=== PATIENT | male | born 1965 | race Caucasian/White ===

== ENCOUNTER 2017-12-05 07:13 | Day surgery (SDC) | payer BC ==
[~2017-12-05 07:13] MED LIST: Lactated Ringers 1,000 ML IV SCH; Sodium Chloride 0.9% 10 ML Syringe FLUSH PRN
[2017-12-05] MEDS ORDERED: fentaNYL 100 MCG/2 ML SDV ONE ×2 (08:01→08:15)
[2017-12-05] MEDS ORDERED: Midazolam 1 MG/ML 2 ML SDV ONE ×2 (08:01→08:15)
[2017-12-05] MEDS ORDERED: Propofol 200 MG/20 ML SDV ONE ×4 (08:01→09:36)
[2017-12-05] MEDS ORDERED: Lidocaine 2% 5 ML SDV ONE (08:15)
--- NOTE | 2017-12-05 10:01 | PCM.OPNOTE ---
- General Post-Op/Procedure Note Date of Surgery/Procedure: 12/05/17 Operative Procedure(s): EGD with biopsy and Colonoscopy with Polypectomy Findings: Normal appearing structures on upper endoscopy 2 large irregular sigmoid colon polyps (? inflammatory) Narrowing at ileo-colonic anastomosis small rectal polyps Pre Op Diagnosis: Abdominal bloating. Crohn's Disease Post-Op Diagnosis: Colon Polyps. Anastomotic Stricture. Crohn's Disease Anesthesia Technique: [facility] [place] Primary Surgeon: Luther Ng Pathology: Biopsies of Gastric Antrum and Duodenum Rectal polyps Sigmoid Colon Polyps Output, Urine Amount: 0 EBL in mLs: 20 Complications: None Condition: Good
[2017-12-05 10:46] VITALS: BP 127/79
--- NOTE | 2017-12-05 12:06 | OR ---
Date of Procedure: 12/05/2017 PREOPERATIVE DIAGNOSES: 1. Abdominal bloating. 2. History of Crohn disease. POSTOPERATIVE DIAGNOSES: 1. Normal upper endoscopy. 2. Colon polyps. 3. Anastomotic stricture. 4. Crohn disease. OPERATION PERFORMED: Esophagogastroduodenoscopy with biopsy and colonoscopy with polypectomy. INDICATIONS FOR SURGERY: This 52-year-old male has a known history of Crohn disease and has had a previous intestinal resection for this. It has been several years since his last colonoscopy and he is noting increased abdominal bloating. FINDINGS: On upper endoscopy, the esophagus, stomach, and duodenum to the fourth portion appeared normal. No ulcers or visible signs of inflammation were noted. On colonoscopy, the patient had an area of some tortuosity in the sigmoid region. In this area, two polypoid lesions were noted, one was at the 30 cm level and estimated at 3 cm in size, the other was at the 40 cm level and estimated at 1.5 cm in size. Both of these were irregular, but somewhat inflammatory in appearance. The patient also had two small polyps in the rectum 5 cm from the anal verge, these were 3 to 4 mm in size. The colon otherwise appeared normal with the exception of the colon to ileum anastomosis, which appeared to be markedly narrowed. PROCEDURE IN DETAIL: The patient was taken to the operating room. He was given intravenous sedation and his throat was topically anesthetized. With him in the left lateral decubitus position, the esophagus was intubated under direct visualization with the Olympus gastroscope. This was then carefully advanced through the esophagus, stomach, and duodenum to the fourth portion. Because of the patient's symptoms, random biopsies of the duodenum were taken. The duodenum was examined and appeared normal. The scope was withdrawn back up into the stomach where full examination including retroflexed examination of the fundus was carried out and random biopsies of the antrum were taken to rule out H. pylori. The GE junction and esophagus were then examined as the scope was withdrawn. Attention was then turned to colonoscopy. Digital rectal exam shows no rectal masses. The Olympus colonoscope was inserted into the rectum. Two small polyps were noted in the rectum. These were removed with the biopsy forceps and submitted as specimens. Retroflexed examination of the rectum was then carried out and the scope was then carefully advanced. In the sigmoid colon region, the large polyp at 30 cm level was identified. Using the larger size cautery snare, this polyp was removed in piecemeal and specimens retrieved. The majority of the polyp was removed. There did appear to be a small bit of the stalk remaining, but no noted complication was noted at this point. On further advancement of the scope, second polypoid lesion in the sigmoid colon was identified. On insertion of the scope because of the acute angulation of the colon, the snare could not be placed around this polypoid lesion, so the scope was then advanced through the length of the remaining colon to the anastomosis where it appeared to be markedly strictured, but no other lesions in the more proximal colon were noted. The scope was then carefully withdrawn, sequentially re-examining the colonic segments. Upon withdrawal of the scope, the polyp in the sigmoid colon was again viewed and the distal portion of it was able to be removed with cautery snare and retrieved into a polyp trap. Although the majority of this polyp was not removed. Examination was completed as the scope was further withdrawn and once the examination had completed, the scope was removed and the patient was taken from the operating room in satisfactory condition. ESTIMATED BLOOD LOSS: 20 mL. COMPLICATIONS: None. PROGNOSIS: Good. JOSE MIGUEL Ng MD /[id number] [facility]
--- NOTE | 2017-12-05 12:06 | HP ---
HISTORY OF PRESENT ILLNESS: This 52-year-old male presents today for EGD and colonoscopy. He has a history of abdominal bloating and some nausea. He is also overdue for colonoscopy. The patient has a history of Crohn disease and has had a previous surgical resection for this problem. He has also had multiple abdominal wall hernia repairs. PAST MEDICAL HISTORY: Shows that he is generally, otherwise, healthy. MEDICATIONS: His only current medication is vitamins. ALLERGIES: He is allergic to sulfa. SOCIAL HISTORY: He is a former smoker. PHYSICAL EXAMINATION: VITAL SIGNS: Physical exam today shows a temperature of 97.7, pulse 86, and blood pressure is 114/86. GENERAL: The patient is an adult male, currently in no acute distress. HEENT: Head is normocephalic. No scleral icterus. HEART: Regular. LUNGS: Clear. ABDOMEN: Soft. There is some mild tenderness in the left lower quadrant. No abdominal masses are noted. There is a mild distention. No hepatic or splenic enlargement. EXTREMITIES: Show no edema. IMPRESSION: 1. Abdominal bloating. 2. Colon cancer screening. 3. History of Crohn disease. PLAN: EGD and colonoscopy. INFORMED CONSENT: I have discussed the proposed upper and lower endoscopy with the patient. He understands indications, options, risks, and agrees to proceed. JOSE MIGUEL Ng MD /[id number]
== END 2017-12-05 11:33 | disposition home or self-care (01) ==
LOC: LL.SDS 07:13
PROVIDERS: ATTEND Surgery
DX: K29.50 Unspecified chronic gastritis without bleeding (principal); K63.5 Polyp of colon; K62.1 Rectal polyp; Z88.2 Allergy status to sulfonamides; Z87.891 Personal history of nicotine dependence; Z79.899 Other long term (current) drug therapy
CPT/HCPCS: J2250; J2704; J3010; J7120

== ENCOUNTER 2018-05-26 16:23 | Emergency (ER) | payer BC, OTHER ==
[2018-05-26 16:29] VITALS: BP 122/85
[2018-05-26] MEDS ORDERED: Ketorolac 10 MG Tab PO ONE (16:59)
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
== END 2018-05-26 17:15 | disposition home or self-care (01) ==
LOC: LL.ED 16:23
DX: S20.212A Contusion of left front wall of thorax, initial encounter (principal); W22.8XXA Striking against or struck by other objects, initial encounter; Z88.2 Allergy status to sulfonamides
CPT/HCPCS: 71101-LT; 99283; A9270-GY

== ENCOUNTER 2021-11-02 09:25 | Inpatient (IN) | payer BC ==
--- NOTE | 2021-11-02 09:29 | EDM.PDOC ---
ED HPI GENERAL MEDICAL PROBLEM - General Chief Complaint: General Stated Complaint: covid, nausea, weakness Time Seen by Provider: 11/02/21 09:29 Source of Information: Reports: Patient History Limitations: Reports: No Limitations - History of Present Illness INITIAL COMMENTS - FREE TEXT/NARRATIVE: Patient comes emergency department today from home with complaints of weakness f ever chills cough and congestion. This patient who has a history of bilateral sciatica Crohn's disease which she is on chronic Imuran for. On 10/23/2021 he started having cough shortness of breath and fever. He was diagnosed Covid positive on 10/26/21. Since that time he has eaten very little. Ate toast yesterday no fluids. No appetite. SOB with cough and congestion. No pain in his chest palpitation. Generalized weakness myalgias. Has not taken anything for fever this morning. Dry hacky non-productive cough. No syncope some weakness upon standing. No abd pain nausea or vomiting. No hematuria dysuria or hematuria. No diarrhea. No pain in his legs or calves. No history of blood clots. He is not covid vaccinated. - Related Data Allergies Allergy/AdvReac Type Severity Reaction Status Date / Time Sulfa (Sulfonamide Allergy Rash Verified 11/02/21 12:05 Antibiotics) Home Meds: Home Meds D-Methorphan/PE/Acetaminophen [Daytime Cold Multi-Symp Gelcap] 1 each PO Q4HR PRN 11/02/21 [History] Meloxicam 15 mg PO DAILY 11/02/21 [History] Past Medical History HEENT History: Reports: None Cardiovascular History: Reports: None Respiratory History: Reports: None Gastrointestinal History: Reports: Other (See Below) Other Gastrointestinal History: Crohn's Genitourinary History: Reports: None Musculoskeletal History: Reports: None Neurological History: Reports: None Psychiatric History: Reports: None Endocrine/Metabolic History: Reports: Obesity/BMI 30+ Hematologic History: Reports: None Immunologic History: Reports: None Oncologic (Cancer) History: Reports: None Dermatologic History: Reports: None - Past Surgical History GI Surgical History: Reports: Appendectomy Social & Family History - Caffeine Use Caffeine Use: Reports: Coffee, Soda ED ROS GENERAL - Review of Systems Review Of Systems: Comprehensive ROS is negative, except as noted in HPI. ED EXAM, GENERAL - Physical Exam Exam: See Below Exam Limited By: No Limitations General Appearance: Alert, WD/WN, No Apparent Distress Eye Exam: Bilateral Eye: EOMI, PERRL Ears: Normal External Exam Nose: Normal Inspection, Nasal Flaring Head: Atraumatic, Normocephalic Neck: Normal Inspection, Supple, Non-Tender, Full Range of Motion Respiratory/Chest: No Respiratory Distress, No Accessory Muscle Use, Decreased Breath Sounds, Crackles (Fine inspiratory crackles inspiratory bilaterally. ). No: Wheezing Cardiovascular: Normal Peripheral Pulses, Regular Rate, Rhythm Peripheral Pulses: 2+: Radial (L), Radial (R), Posterior Tibial (L), Posterior Tibial (R), Dorsalis Pedis (L), Dorsalis Pedis (R) GI/Abdominal: Normal Bowel Sounds, Soft, Non-Tender (Male) Exam: Deferred Rectal (Males) Exam: Deferred Back Exam: Normal Inspection, Full Range of Motion Extremities: Normal Inspection (No redness sores lesions cords redness tenderness. ), Normal Range of Motion, No Pedal Edema, Normal Capillary Refill. No: Konrad's Sign Neurological: Alert, Oriented, Normal Cognition, No Motor/Sensory Deficits Psychiatric: Normal Affect, Normal Mood Skin Exam: Warm, Dry, Intact, Normal Color, No Rash Lymphatic: No Adenopathy Course - Vital Signs Last Recorded V/S: Last Vital Signs Temp 99.4 F 11/02/21 17:26 Pulse 102 H 11/02/21 16:00 Resp 16 11/02/21 16:00 BP 144/78 H 11/02/21 16:00 Pulse Ox 91 L 11/02/21 17:26 - Orders/Labs/Meds Orders: Active Orders 24 hr Category Date Time Status Admission Status [Patient Status] [ADT] Routine ADT 11/02/21 12:42 Active Peripheral IV Care [RC] . DIRECTED Care 11/02/21 09:39 Active CTA Chest W WO Contrast [Ang Chest] [CT] Stat Exams 11/02/21 11:03 Taken Chest 1V Frontal [CR] Stat Exams 11/02/21 09:38 Taken CULTURE BLOOD [BC] Stat Lab 11/02/21 09:30 Received CULTURE BLOOD [BC] Stat Lab 11/02/21 10:35 Received PROCALCITONIN [REF] Stat Lab 11/02/21 09:30 Received UA RFX JUSTIN AND CULT IF INDIC [URIN] Stat Lab 11/02/21 09:38 Ordered Sodium Chloride 0.9% [Saline Flush] Med 11/02/21 09:37 Active 10 ml FLUSH ASDIRECTED PRN Sodium Chloride 0.9% [Saline Flush] Med 11/02/21 11:15 Active 30 ml FLUSH ASDIRECTED Blood Culture x2 Reflex Set [OM.PC] Stat Oth 11/02/21 09:57 Ordered Peripheral IV Insertion Adult [OM.PC] Stat Ot 11/02/21 09:38 Ordered Medication Orders Acetaminophen (Acetaminophen 325 Mg Tab) 650 mg PO Q4H PRN PRN Reason: Pain (Mild 1-3)/fever Last Admin: 11/02/21 14:33 Dose: 650 mg Documented by: MERISSA Albuterol (Albuterol 6.7 Gm Inhaler) 0 gm INH Q4HR PRN PRN Reason: Shortness Of Breath, Cough Last Admin: 11/02/21 17:22 Dose: 2 puff Documented by: MERISSA Benzonatate (Benzonatate 100 Mg Cap) 100 mg PO TID PRN PRN Reason: Cough Last Admin: 11/02/21 17:22 Dose: 100 mg Documented by: MERISSA Dexamethasone (Dexamethasone 2 Mg Tab) 6 mg PO DAILY [facility] Enoxaparin Sodium (Enoxaparin 40 Mg/0.4 Ml Syringe) 40 mg SUBCUT DAILY [facility] Last Admin: 11/02/21 14:33 Dose: 40 mg Documented by: MERISSA Remdesivir 100 mg/ Sodium (Chloride) 100 mls @ 100 mls/hr IV Q24H [facility] Lactated Ringer's (Ringers, Lactated) 1,000 mls @ 75 mls/hr IV ASDIRECTED [facility] Phenol/Menthol (Phenol 1.4% Oral [place] 177 Ml Bottle) 2 ml MUCMEM Q2H PRN PRN Reason: Sore Throat Potassium Bicarbonate (Potassium Bicarbonate/Cit Ac 20 Meq Effervescent Tab) 20 meq PO Q2H [facility] Stop: 11/02/21 21:31 Last Admin: 11/02/21 17:29 Dose: 20 meq Documented by: MERISSA Sodium Chloride (Sodium Chloride 0.9% 10 Ml Syringe) 10 ml FLUSH ASDIRECTED PRN PRN Reason: Keep Vein Open Sodium Chloride (Sodium Chloride 0.9% 10 Ml Syringe) 30 ml FLUSH ASDIRECTED LOLY Last Admin: 11/02/21 12:26 Dose: 30 ml Documented by: MERISSA Sodium Chloride (Sodium Chloride 0.9% 10 Ml Syringe) 30 ml FLUSH DAILY@1500 LOLY Stop: 11/06/21 15:01 Last Admin: 11/02/21 15:53 Dose: 30 ml Documented by: MERISSA Labs: Laboratory Tests 11/02/21 11/02/21 11/02/21 Range/Units 09:30 09:30 09:30 WBC 7.2 (4.0-10.2) K/uL RBC 4.25 L (4.33-5.41) M/uL Hgb 13.3 (13.1-16.8) g/dL Hct 38.6 L (39.0-49.0) % MCV 90.8 (84.0-98.0) fL MCH 31.3 (28.2-33.3) pg MCHC 34.5 (31.7-36.0) g/dL RDW 13.7 (11.2-14.1) % Plt Count 348 D (150-350) K/uL Neut % (Auto) 89.6 H (45.0-80.0) % Lymph % (Auto) 4.3 L (10.0-50.0) % Wilkinson % (Auto) 6.0 (2.0-14.0) % Eos % (Auto) 0.0 (0.0-5.0) % Baso % (Auto) 0.1 (0.0-2.0) % Neut # (Auto) 6.43 (1.40-7.00) K/uL Lymph # (Auto) 0.31 L (0.50-3.50) K/uL Wilkinson # (Auto) 0.43 (0.00-1.00) K/uL Eos # (Auto) 0.00 (0.00-0.50) K/uL Baso # (Auto) 0.01 (0.00-0.20) K/uL PT 10.3 (9.5-12.0) SEC INR 1.0 APTT 33.0 H (24.5-32.8) SEC D-Dimer, Quantitative (0-400) ng/mL Sodium 139 (136-145) mmol/L Potassium 2.7 L* (3.5-5.1) mmol/L Chloride 97 L (98-107) mmol/L Carbon Dioxide 28.0 (21.0-32.0) mmol/L Anion Gap 16.7 H (7-15) meq/L BUN 15 (7-18) mg/dL Creatinine 1.38 H (0.51-1.17) mg/dL Est Cr Clr Drug Dosing TNP Estimated GFR (MDRD) 53 mL/min Glucose 110 H (70-99) mg/dL Lactic Acid (0.4-2.0) mmol/L Calcium 8.4 L (8.5-10.1) mg/dL Magnesium 2.0 (1.8-2.4) mg/dL Ferritin (8-388) ng/mL Total Bilirubin 0.5 (0.2-1.0) mg/dL Direct Bilirubin (0.0-0.2) mg/dL AST 57 H (15-37) U/L ALT 36 (12-78) U/L Alkaline Phosphatase 127 H (46-116) IU/L Lactate Dehydrogenase 492 H (81-234) U/L Troponin I High Sens 11 (<=76) ng/L C-Reactive Protein 33.7 H (<=0.9) mg/dL NT-Pro-B Natriuret Pep 22 (0-125) pg/mL Total Protein 7.8 (6.4-8.2) g/dL Albumin 2.8 L (3.4-5.0) g/dL 11/02/21 11/02/21 11/02/21 Range/Units 09:30 09:30 09:30 WBC (4.0-10.2) K/uL RBC (4.33-5.41) M/uL Hgb (13.1-16.8) g/dL Hct (39.0-49.0) % MCV (84.0-98.0) fL MCH (28.2-33.3) pg MCHC (31.7-36.0) g/dL RDW (11.2-14.1) % Plt Count (150-350) K/uL Neut % (Auto) (45.0-80.0) % Lymph % (Auto) (10.0-50.0) % Wilkinson % (Auto) (2.0-14.0) % Eos % (Auto) (0.0-5.0) % Baso % (Auto) (0.0-2.0) % Neut # (Auto) (1.40-7.00) K/uL Lymph # (Auto) (0.50-3.50) K/uL Wilkinson # (Auto) (0.00-1.00) K/uL Eos # (Auto) (0.00-0.50) K/uL Baso # (Auto) (0.00-0.20) K/uL PT (9.5-12.0) SEC INR APTT (24.5-32.8) SEC D-Dimer, Quantitative 675 H (0-400) ng/mL Sodium (136-145) mmol/L Potassium (3.5-5.1) mmol/L Chloride (98-107) mmol/L Carbon Dioxide (21.0-32.0) mmol/L Anion Gap (7-15) meq/L BUN (7-18) mg/dL Creatinine (0.51-1.17) mg/dL Est Cr Clr Drug Dosing Estimated GFR (MDRD) mL/min Glucose (70-99) mg/dL Lactic Acid 2.2 H (0.4-2.0) mmol/L Calcium (8.5-10.1) mg/dL Magnesium (1.8-2.4) mg/dL Ferritin > 1000 H (8-388) ng/mL Total Bilirubin (0.2-1.0) mg/dL Direct Bilirubin (0.0-0.2) mg/dL AST (15-37) U/L ALT (12-78) U/L Alkaline Phosphatase (46-116) IU/L Lactate Dehydrogenase (81-234) U/L Troponin I High Sens (<=76) ng/L C-Reactive Protein (<=0.9) mg/dL NT-Pro-B Natriuret Pep (0-125) pg/mL Total Protein (6.4-8.2) g/dL Albumin (3.4-5.0) g/dL 11/02/21 11/02/21 Range/Units 09:30 13:00 WBC (4.0-10.2) K/uL RBC (4.33-5.41) M/uL Hgb (13.1-16.8) g/dL Hct (39.0-49.0) % MCV (84.0-98.0) fL MCH (28.2-33.3) pg MCHC (31.7-36.0) g/dL RDW (11.2-14.1) % Plt Count (150-350) K/uL Neut % (Auto) (45.0-80.0) % Lymph % (Auto) (10.0-50.0) % Wilkinson % (Auto) (2.0-14.0) % Eos % (Auto) (0.0-5.0) % Baso % (Auto) (0.0-2.0) % Neut # (Auto) (1.40-7.00) K/uL Lymph # (Auto) (0.50-3.50) K/uL Wilkinson # (Auto) (0.00-1.00) K/uL Eos # (Auto) (0.00-0.50) K/uL Baso # (Auto) (0.00-0.20) K/uL PT (9.5-12.0) SEC INR APTT (24.5-32.8) SEC D-Dimer, Quantitative (0-400) ng/mL Sodium (136-145) mmol/L Potassium (3.5-5.1) mmol/L Chloride (98-107) mmol/L Carbon Dioxide (21.0-32.0) mmol/L Anion Gap (7-15) meq/L BUN (7-18) mg/dL Creatinine (0.51-1.17) mg/dL Est Cr Clr Drug Dosing Estimated GFR (MDRD) mL/min Glucose (70-99) mg/dL Lactic Acid 1.2 (0.4-2.0) mmol/L Calcium (8.5-10.1) mg/dL Magnesium (1.8-2.4) mg/dL Ferritin (8-388) ng/mL Total Bilirubin (0.2-1.0) mg/dL Direct Bilirubin 0.2 (0.0-0.2) mg/dL AST (15-37) U/L ALT (12-78) U/L Alkaline Phosphatase (46-116) IU/L Lactate Dehydrogenase (81-234) U/L Troponin I High Sens (<=76) ng/L C-Reactive Protein (<=0.9) mg/dL NT-Pro-B Natriuret Pep (0-125) pg/mL Total Protein (6.4-8.2) g/dL Albumin (3.4-5.0) g/dL Meds: Medications Generic Name Dose Route Start Last Admin Trade Name Freq PRN Reason Stop Dose Admin Acetaminophen 650 mg 11/02/21 14:00 11/02/21 14:33 Acetaminophen 325 Mg Tab PO 650 mg Q4H PRN Administration Pain (Mild 1-3)/fever Albuterol 0 gm 11/02/21 16:25 11/02/21 17:22 Albuterol 6.7 Gm Inhaler INH 2 puff Q4HR PRN Administration Shortness Of Breath, Cough Benzonatate 100 mg 11/02/21 16:27 11/02/21 17:22 Benzonatate 100 Mg Cap PO 100 mg TID PRN Administration Cough Dexamethasone 6 mg 11/03/21 08:00 Dexamethasone 2 Mg Tab PO DAILY LOL[facility] Enoxaparin Sodium 40 mg 11/02/21 14:00 11/02/21 14:33 Enoxaparin 40 Mg/0.4 Ml Syringe SUBCUT 40 mg DAILY [facility] Administration Remdesivir 100 mg/ Sodium 100 mls @ 100 mls/hr 11/03/21 14:00 Chloride IV Q24H [facility] Lactated Ringer's 1,000 mls @ 75 mls/hr 11/02/21 14:00 Ringers, Lactated IV ASDIRECTED [facility] Phenol/Menthol 2 ml 11/02/21 14:03 Phenol 1.4% Oral [place] 177 Ml Bottle MUCMEM Q2H PRN Sore Throat Potassium Bicarbonate 20 meq 11/02/21 17:30 11/02/21 17:29 Potassium Bicarbonate/Cit Ac 20 Meq Effervescent Tab PO 11/02/21 21:31 20 meq Q2H LOL[facility] Administration Sodium Chloride 10 ml 11/02/21 09:37 Sodium Chloride 0.9% 10 Ml Syringe FLUSH ASDIRECTED PRN Keep Vein Open Sodium Chloride 30 ml 11/02/21 11:15 11/02/21 12:26 Sodium Chloride 0.9% 10 Ml Syringe FLUSH 30 ml ASDIRECTED LOLY Administration Sodium Chloride 30 ml 11/02/21 15:00 11/02/21 15:53 Sodium Chloride 0.9% 10 Ml Syringe FLUSH 11/06/21 15:01 30 ml DAILY@1500 LOLY Administration Discontinued Medications Generic Name Dose Route Start Last Admin Trade Name Freq PRN Reason Stop Dose Admin Dexamethasone 6 mg 11/02/21 09:39 11/02/21 09:52 Dexamethasone 10 Mg/Ml Sdv IVPUSH 11/02/21 09:40 6 mg ONETIME ONE Administration Diphenhydramine HCl 50 mg 11/02/21 11:04 Diphenhydramine 50 Mg/Ml Sdv IVPUSH ASDIRECTED PRN hypersensitivity reaction Epinephrine HCl 0.3 mg 11/02/21 11:04 Epinephrine 1 Mg/Ml Sdv IM ASDIRECTED PRN hypersensitivity reaction Famotidine 20 mg 11/02/21 11:04 Famotidine 20 Mg/2 Ml Sdv IVPUSH ASDIRECTED PRN hypersensitivity reaction Lactated Ringer's 1,000 mls @ 1,000 mls/hr 11/02/21 09:39 11/02/21 09:51 Ringers, Lactated IV 11/02/21 10:38 1,000 mls/hr .BOLUS ONE Administration Lactated Ringer's 1,000 mls @ 250 mls/hr 11/02/21 11:15 11/02/21 11:44 Ringers, Lactated IV 250 mls/hr ASDIRECTED LOLY Administration Bamlanivimab 700 mg/ 160 mls @ 310 mls/hr 11/02/21 11:04 11/02/21 11:42 Etesevimab 1,400 mg/ Sodium IV 11/02/21 11:34 310 mls/hr Chloride ONETIME ONE Administration Remdesivir 200 mg/ Sodium 250 mls @ 250 mls/hr 11/02/21 14:00 11/02/21 14:34 Chloride IV 11/02/21 14:59 250 mls/hr ONETIME ONE Administration Iopamidol 100 ml 11/02/21 11:28 11/02/21 11:46 Iopamidol 755 Mg/Ml 100 Ml Bottle IVPUSH 11/02/21 11:29 100 ml ONETIME ONE Administration Methylprednisolone Sodium Succinate 125 mg 11/02/21 11:04 Methylprednisolone Sodium Succinate 125 Mg/2 Ml Sdv IVPUSH ASDIRECTED PRN hypersensitivity reaction Ondansetron HCl 4 mg 11/02/21 09:40 11/02/21 09:51 Ondansetron 4 Mg/2 Ml Sdv IV 11/02/21 09:41 4 mg ONETIME ONE Administration Potassium Bicarbonate 20 meq 11/02/21 12:00 11/02/21 15:53 Potassium Bicarbonate/Cit Ac 20 Meq Effervescent Tab PO 11/02/21 16:01 20 meq Q2HR LOLY Administration - Radiology Interpretation Free Text/Narrative:: Chest x-ray initially reviewed extemporaneously by myself shows patchy opacities in the lateral aspects of the lung consistent with viral type pneumonia. No hemopneumothorax. Normal cardiac silhouette. Radiological review to follow. Patient Name: CRISTOFER YOUNG Date of : 1965 Procedure: XRAY CHEST 1 VIEW Date of Service: 11/02/2021 EXAM: XRAY CHEST 1 VIEW INDICATION:ICD-10 R09.02 Hypoxia ICD-10 U07.1 COVID-19 COMPARISON(S): 05/26/2018 FINDINGS/IMPRESSION: There are patchy bilateral airspace opacities concerning for pneumonia. There is no significant pneumothorax. There are no significant pleural effusions. The cardiomediastinal silhouette is stable. Finalized by: Blaise Russell MD on 11/02/2021 10:32 AM DINKEY [employer] Patient/Procedure Information: [facility] MRN/CARLOS: [id number]/ Order Number: [id number] Accession Number: [id number] Ordering Provider: BRYCE DAMICO Authorizing Provider: BRYCE DAMICO CTA Chest Patient Name: CRISTOFER YOUNG Date of : 1965 Procedure: CTA CHEST Date of Service: 11/02/2021 EXAM: CTA CHEST INDICATION:ICD-10 R79.89 Elevated d-dimer ICD-10 U07.1 COVID-19 ICD-10 R09.02 Hypoxia ICD-10 I26.99 Pulmonary embolism Elevated D. Dimer, COVID, Hypoxia, PE TECHNIQUE: CT angiogram of the chest performed after administration of intravenous contrast. 3-D/MIP reconstructions were performed. COMPARISON(S): None. FINDINGS: Evaluation of the pulmonary arteries is diagnostic through the proximal segmental level. There is no evidence of pulmonary embolism. The thoracic aorta is normal in caliber and without dissection. Examination of the lungs shows fairly extensive scattered groundglass opacity throughout the lungs which are more prominent towards the lung periphery. The central airways are widely patent. No pneumothorax or pleural effusion. The heart is normal in size. No mediastinal or hilar lymphadenopathy. The thyroid is normal. The gallbladder is surgically absent. The remaining visualized portions of the upper abdomen are unremarkable. No aggressive osseous lesions. IMPRESSION: 1. No pulmonary embolism. 2. Fairly extensive groundglass opacities throughout the bilateral lungs which are more prominent towards the lung periphery and most compatible with COVID 19 pneumonia. - Re-Assessments/Exams Free Text/Narrative Re-Assessment/Exam: 11/02/21 09:57 IV established labs drawn. His oxygen saturation initially on RA on his finger was 86% and decadron was given. Although once placed on his ear his sats are 97% RA. Potassium 2.7, potassium oral solution 20 mEq every 2 hours x 3. Creatinine 1.38 today with a baseline creatinine of 04/14/2021 of 1.04. Continue IV hydration this is most likely due to acute prerenal failure from his poor oral intake. Patient is at high risk for severe Covid sequelae with his immunocompromise state and still being on his Imuran. UA discussion held with the patient for monoclonal antibodies to include I spoke with the patient himself to provide information about the EUA medication to include Bamlanivimab & Etesevimab. I offered the fax sheet for patients and parents/caregivers for these 2 medication s to review and read. I stated that therapy has been approved by an emergency use authorization process and has not fully been FDA reviewed or approved. I shared potential risk from the therapy including allergic reaction plus unknown other reactions. I discussed there are other potential options that are currently not FDA approved to treat COVID-19 but not in his instance. Offered opportunity ask questions and all questions were answered. The patient voiced understanding and agreed to proceed with the treatment for himself. We will continue IV hydration in the emergency department and lactated Ringer's 250 mils an hour. He has no history of congestive heart failure. As well as oral supplementation of Potassium and have the patient eat a meal which he is refusing to do so at home. 11/02/21 12:38 Pt sats are now 84% on RA. Will decrease fluids to 75mls/hr and place on oxygen and plan on admission. Still receiving his MAB no signs of anaphylaxis at this time. Departure - Departure Time of Disposition: 12:45 Disposition: Admitted As Inpatient 65 Clinical Impression: Pneumonia due to COVID-19 virus, Acute kidney injury, Hypokalemia, inadequate intake, Weakness generalized, Dehydration, Acute respiratory failure with hypoxia, Immunocompromised patient - Discharge Information Sepsis Event Note (ED) - Evaluation Sepsis Screening Result: No Definite Risk - Focused Exam Vital Signs: Vital Signs Temp Pulse Resp BP Pulse Ox 11/02/21 13:00 104 H 16 119/71 95 11/02/21 12:45 106 H 16 119/74 94 L 11/02/21 12:30 104 H 16 119/71 89 L 11/02/21 12:15 106 H 16 118/72 88 L 11/02/21 12:00 102 H 16 119/55 L 92 L 11/02/21 09:27 100.3 F 102 H 16 128/68 92 L - Problem List Review Problem List Initiated/Reviewed/Updated: Yes - My Orders Last 24 Hours: My Active Orders 11/02/21 09:30 CULTURE BLOOD [BC] Stat PROCALCITONIN [REF] Stat 11/02/21 09:37 Sodium Chloride 0.9% [Saline Flush] 10 ml FLUSH ASDIRECTED PRN 11/02/21 09:38 Chest 1V Frontal [CR] Stat UA RFX JUSTIN AND CULT IF INDIC [URIN] Stat Peripheral IV Insertion Adult [OM.PC] Stat 11/02/21 09:39 Peripheral IV Care [RC] . DIRECTED 11/02/21 09:57 Blood Culture x2 Reflex Set [OM.PC] Stat 11/02/21 10:35 CULTURE BLOOD [BC] Stat 11/02/21 11:03 CTA Chest W WO Contrast [Ang Chest] [CT] Stat 11/02/21 11:15 Sodium Chloride 0.9% [Saline Flush] 30 ml FLUSH ASDIRECTED 11/02/21 12:42 Admission Status [Patient Status] [ADT] Routine - Assessment/Plan Admission H&P: Please use this note as an admission H&P Last 24 Hours: My Active Orders 11/02/21 09:30 CULTURE BLOOD [BC] Stat PROCALCITONIN [REF] Stat 11/02/21 09:37 Sodium Chloride 0.9% [Saline Flush] 10 ml FLUSH ASDIRECTED PRN 11/02/21 09:38 Chest 1V Frontal [CR] Stat UA RFX JUSTIN AND CULT IF INDIC [URIN] Stat Peripheral IV Insertion Adult [OM.PC] Stat 11/02/21 09:39 Peripheral IV Care [RC] . DIRECTED 11/02/21 09:57 Blood Culture x2 Reflex Set [OM.PC] Stat 11/02/21 10:35 CULTURE BLOOD [BC] Stat 11/02/21 11:03 CTA Chest W WO Contrast [Ang Chest] [CT] Stat 11/02/21 11:15 Sodium Chloride 0.9% [Saline Flush] 30 ml FLUSH ASDIRECTED 11/02/21 12:42 Admission Status [Patient Status] [ADT] Routine Assessment:: Please use this note as admission H&P Admit inpatient with the below acute diagnosis. 1. COVID pneumonia Symptoms start 10/23/21, MAB in ED today prior to development of hypoxia Remdesivir protocol Decadron 6mg po daily. 2. Acute hypoxic respiratory failure 2/2 #1. Decadron oxygen to keep sats above 90%. I/S q2hr. 3. Hypokalemia Poor intake, 2.6 K Oral replenishment 20meq q2hr liquid until stable. Mag 2.0 Recheck this PM and AM 4. GENARO-most likely pre-renal poor intake. Creat 1.04 04/14/21, 1.38 11/02/21 1 liter fluids in ED. LR at 125mls/hr push oral fluids. 5. Generalized weakness-2/2 3 &1. Treat above diagnosis, eat meals. 6. Immunocompromised patient. HX of Crohns on Imuran Hold Imuran at this time. monitor. Chronic Diagnosis Crohs Hold Imuran 2/2 #1. Monitor Chronic MSK pain Continue Meloxicam. VTE: Lovenox 40mg Subcut qd Sepsis: no signs of SEpsis at this time continue to monitor. Code Status: Full code. Admit to inpatient services with the above therapies. Weakness should improve with medical therapy and eating if not consider PT/OT. Remdesivir and Decadron oxygen. Correct electrolytes and follow. His Ferritin is quite high and worried for severe manager of case management closely. PE scan negative. Daily D-Dimer labs and every 48 hrs Ferritin LDH. Hopefully 2-3 days of inpatient services concerns worsening due to immunocompromised state and severe elevation of Ferritin ? severe sequelae.
[2021-11-02] MEDS ORDERED: Sodium Chloride 0.9% 10 ML Syringe FLUSH PRN (09:37)
[2021-11-02] MEDS ORDERED: Dexamethasone 10 MG/ML SDV IVPUSH ONE (09:39)
[2021-11-02] MEDS ORDERED: Lactated Ringers 1,000 ML IV ONE (09:39)
[2021-11-02] MEDS ORDERED: Ondansetron 4 MG/2 ML SDV IV ONE (09:40)
[2021-11-02 10:15] LABS: CHLORIDE,CL 97 mmol/L (98-107); SODIUM,NA 139 mmol/L (136-145)
--- NOTE | 2021-11-02 10:18 | PCM.EKG ---
#1 Interpretation EKG Date: 11/02/21 Time: 10:00 Rhythm: NSR Rate (Beats/Min): 106 [place]: Normal P-Wave: Present QRS: Normal ST-T: Normal QT: Normal
[2021-11-02 10:55] LABS: ANION GAP 16.7 meq/L (7-15)
[2021-11-02] MEDS ORDERED: Bamlanivimab 700 MG, ETESEVIMAB 1,400 MG in Sodium Chloride 0.9% 100 ML IV ONE (11:04)
[2021-11-02] MEDS ORDERED: EPINEPHrine 1 MG/ML SDV IM PRN (11:04)
[2021-11-02] MEDS ORDERED: diphenhydrAMINE 50 MG/ML SDV IVPUSH PRN (11:04)
[2021-11-02] MEDS ORDERED: methylPREDNISolone Sodium Succinate 125 MG/2 ML SDV IVPUSH PRN (11:04)
[2021-11-02] MEDS ORDERED: Famotidine 20 MG/2 ML SDV IVPUSH PRN (11:04)
[2021-11-02] MEDS ORDERED: Sodium Chloride 0.9% 10 ML Syringe FLUSH SCH ×2 (11:15→15:00)
[2021-11-02] MEDS ORDERED: Lactated Ringers 1,000 ML IV SCH ×2 (11:15→14:00)
[2021-11-02] MEDS ORDERED: Iopamidol 755 Mg/ML 100 ML Bottle IVPUSH ONE (11:28)
[2021-11-02] MEDS: Potassium Bicarbonate/Cit Ac 20 MEQ Effervescent Tab PO SCH ×6 (11:44→21:47)
[2021-11-02] MEDS ORDERED: REMDESIVIR 200 MG in Sodium Chloride 0.9% 250 ML IV ONE (14:00)
[2021-11-02] MEDS ORDERED: Enoxaparin 40 MG/0.4 ML Syringe SUBCUT SCH (14:00)
[2021-11-02] MEDS ORDERED: Phenol 1.4% Oral Spray 177 ML Bottle MUCMEM PRN (14:03)
[2021-11-02] MEDS: Acetaminophen 325 MG Tab PO PRN ×2 (14:33→23:45)
[2021-11-02 17:09] LABS: ANION GAP 14.5 meq/L (7-15)
[2021-11-02] MEDS: Albuterol 6.7 GM Inhaler INH PRN ×2 (17:22→23:50)
[2021-11-02] MEDS: Benzonatate 100 MG Cap PO PRN ×2 (17:22→23:50)
[2021-11-02 21:47] VITALS: BP 117/74; PULSE 95
--- NOTE | 2021-11-03 01:12 | PCM.SN.2 ---
- Free Text/Narrative Note: S: I was summoned to the bedside as the patient oxygen requirements have increased. He does complain of worsening SOB and fatigue. He was admitted on 4L of oxygen with appropriate oxygenation. No new pain syncope palpitations. O: Sats 86% on 8 liters NC, RR 30, more breathless than previously. HR 90s. General: Alert appropriate standing at the bedside. Able to speak in 5-6 word sentences. No labored breathing. Chest: Decreased bilaterally with inspiratory crackles bilaterally. regular heart tones. ABD: Soft Extremities: No cords tenderness redness swelling. A: Worsening hypoxia from COVID-19. P: Discontinue fluids No High Flow Device available here. Bipap Ipap 10, Epap 5, Fio2 45%. No Baricitinib or tocilizumad available Spoke with [facility] 2/2 increasing oxygen demands and no High flow oxygen device. HPI HOSPITAL COURSE relayed to Dr. Rivera the hospitalist front end developer javascript html css at [facility]. No new orders. She accepted the patient in transfer at this this time. Discussed this plan of care with the patient he was comfortable with this plan and his questions answered.
--- NOTE | 2021-11-03 01:32 | PCM.DCSUM1 ---
Discharge Summary - Discharge Data Discharge Date: 11/03/21 Discharge Disposition: DC/Tfer to Acute Hospital 02 Condition: Good - Referral to Home Health Primary Care Physician: Andie Bell NP - Discharge Diagnosis/Problem(s) (1) Acute kidney injury SNOMED Code(s): 34934752, 01682670 ICD Code: N17.9 - ACUTE KIDNEY FAILURE, UNSPECIFIED Status: Acute Current Visit: Yes (2) Acute respiratory failure with hypoxia SNOMED Code(s): 68636902, 266091835 ICD Code: J96.01 - ACUTE RESPIRATORY FAILURE WITH HYPOXIA Status: Acute Current Visit: Yes (3) Dehydration SNOMED Code(s): 89823847 ICD Code: E86.0 - DEHYDRATION Status: Acute Current Visit: Yes (4) Hypokalemia, inadequate intake SNOMED Code(s): 01157572 ICD Code: E87.6 - HYPOKALEMIA Status: Acute Current Visit: Yes (5) Immunocompromised patient SNOMED Code(s): 045731921 ICD Code: D84.9 - IMMUNODEFICIENCY, UNSPECIFIED Status: Acute Current Visit: Yes (6) Pneumonia due to COVID-19 virus SNOMED Code(s): 019948877661531071 ICD Code: U07.1 - COVID-19; J12.82 - PNEUMONIA DUE TO CORONAVIRUS DISEASE 2019 Status: Acute Current Visit: Yes (7) Weakness generalized SNOMED Code(s): 22579142 ICD Code: R53.1 - WEAKNESS Status: Acute Current Visit: Yes - Patient Summary/Data Hospital Course: Patient was admitted into the hospital under acute care services due to hypoxic acute respiratory failure and COVID-19 acute kidney injury hypokalemia generalized weakness.This patient who had symptom development on 10/23/2021 of fever chills body aches was seen in the clinic and diagnosed on 10/26/2021 for Covid. He is on long-term DMARD therapy Imuran for Crohn's disease. Presented to the emergency department today due to increased shortness of breath cough fever body aches generalized weakness. He was noted to be hypokalemic and was corrected with oral liquid every 2 hours. He received monoclonal antibody therapy as he initially was not hypoxic. PE scan was negative. Although his ferritin is greater than 1000. Shortly after the monoclonal antibody therapy the patient became hypoxic in the mid 80s. He was admitted into the hospital under inpatient services. He initially was placed on 2 to 4 L of nasal cannula. Started on dexamethasone and remdesivir. Over the next 12 hours his oxygen requirements have increased up to 8 to 10 L per nasal cannula. There is no high flow oxygen delivery system available. He was placed on BiPAP primarily due to hypoxemia not due to hypercapnic concerns. Due to the rather rapid increase in his oxygen demands as well as his very elevated ferritin and his immunocompromise state I spoke with Jean and they accepted the patient in transfer at this time. She was also found to be in acute kidney injury most likely due to prerenal dehydration and poor oral intake. He received fluids in the emergency department 1 L bolus and then 125 mils an hour while he was in the hospital. This was discontinued once his hypoxia started to worsen. - Discharge Plan Home Medications: Home Meds D-Methorphan/PE/Acetaminophen [Daytime Cold Multi-Symp Gelcap] 1 each PO Q4HR PRN 11/02/21 [History] Meloxicam 15 mg PO DAILY 11/02/21 [History] Patient Handouts: Acute Kidney Injury, Adult, How to Use an Incentive Spirometer, Hypokalemia, Albuterol inhalation aerosol, Remdesivir injection, Benzonatate capsules Forms: ED Department Discharge Referrals: Andie Bell [facility]IPPER [Primary Care Provider] - - Discharge Summary/Plan Comment DC Time >30 min.: Yes Total # of Minutes for Discharge Time: BiPAP initiation management as well as consultation with accepting and transferring provider. - General Info Date of Service: 11/03/21 Subjective Update: Please see provider simple note at this time for worsening hypoxia. - Patient Data Vitals - Most Recent: Last Vital Signs Temp 99.9 F 11/02/21 21:45 Pulse 95 11/02/21 21:45 Resp 20 11/02/21 21:45 BP 117/74 11/02/21 21:45 Pulse Ox 90 L 11/02/21 21:45 Weight - Most Recent: 245 lb 4.8 oz Lab Results - Last 24 hrs: Laboratory Results - last 24 hr 11/02/21 11/02/21 11/02/21 Range/Units 09:30 09:30 09:30 WBC 7.2 (4.0-10.2) K/uL RBC 4.25 L (4.33-5.41) M/uL Hgb 13.3 (13.1-16.8) g/dL Hct 38.6 L (39.0-49.0) % MCV 90.8 (84.0-98.0) fL MCH 31.3 (28.2-33.3) pg MCHC 34.5 (31.7-36.0) g/dL RDW 13.7 (11.2-14.1) % Plt Count 348 D (150-350) K/uL Neut % (Auto) 89.6 H (45.0-80.0) % Lymph % (Auto) 4.3 L (10.0-50.0) % Coke % (Auto) 6.0 (2.0-14.0) % Eos % (Auto) 0.0 (0.0-5.0) % Baso % (Auto) 0.1 (0.0-2.0) % Neut # (Auto) 6.43 (1.40-7.00) K/uL Lymph # (Auto) 0.31 L (0.50-3.50) K/uL Coke # (Auto) 0.43 (0.00-1.00) K/uL Eos # (Auto) 0.00 (0.00-0.50) K/uL Baso # (Auto) 0.01 (0.00-0.20) K/uL PT 10.3 (9.5-12.0) SEC INR 1.0 APTT 33.0 H (24.5-32.8) SEC D-Dimer, Quantitative (0-400) ng/mL Sodium 139 (136-145) mmol/L Potassium 2.7 L* (3.5-5.1) mmol/L Chloride 97 L (98-107) mmol/L Carbon Dioxide 28.0 (21.0-32.0) mmol/L Anion Gap 16.7 H (7-15) meq/L BUN 15 (7-18) mg/dL Creatinine 1.38 H (0.51-1.17) mg/dL Est Cr Clr Drug Dosing TNP Estimated GFR (MDRD) 53 mL/min Glucose 110 H (70-99) mg/dL Lactic Acid (0.4-2.0) mmol/L Calcium 8.4 L (8.5-10.1) mg/dL Magnesium 2.0 (1.8-2.4) mg/dL Ferritin (8-388) ng/mL Total Bilirubin 0.5 (0.2-1.0) mg/dL Direct Bilirubin (0.0-0.2) mg/dL AST 57 H (15-37) U/L ALT 36 (12-78) U/L Alkaline Phosphatase 127 H (46-116) IU/L Lactate Dehydrogenase 492 H (81-234) U/L Troponin I High Sens 11 (<=76) ng/L C-Reactive Protein 33.7 H (<=0.9) mg/dL NT-Pro-B Natriuret Pep 22 (0-125) pg/mL Total Protein 7.8 (6.4-8.2) g/dL Albumin 2.8 L (3.4-5.0) g/dL 11/02/21 11/02/21 11/02/21 Range/Units 09:30 09:30 09:30 WBC (4.0-10.2) K/uL RBC (4.33-5.41) M/uL Hgb (13.1-16.8) g/dL Hct (39.0-49.0) % MCV (84.0-98.0) fL MCH (28.2-33.3) pg MCHC (31.7-36.0) g/dL RDW (11.2-14.1) % Plt Count (150-350) K/uL Neut % (Auto) (45.0-80.0) % Lymph % (Auto) (10.0-50.0) % Coke % (Auto) (2.0-14.0) % Eos % (Auto) (0.0-5.0) % Baso % (Auto) (0.0-2.0) % Neut # (Auto) (1.40-7.00) K/uL Lymph # (Auto) (0.50-3.50) K/uL Coke # (Auto) (0.00-1.00) K/uL Eos # (Auto) (0.00-0.50) K/uL Baso # (Auto) (0.00-0.20) K/uL PT (9.5-12.0) SEC INR APTT (24.5-32.8) SEC D-Dimer, Quantitative 675 H (0-400) ng/mL Sodium (136-145) mmol/L Potassium (3.5-5.1) mmol/L Chloride (98-107) mmol/L Carbon Dioxide (21.0-32.0) mmol/L Anion Gap (7-15) meq/L BUN (7-18) mg/dL Creatinine (0.51-1.17) mg/dL Est Cr Clr Drug Dosing Estimated GFR (MDRD) mL/min Glucose (70-99) mg/dL Lactic Acid 2.2 H (0.4-2.0) mmol/L Calcium (8.5-10.1) mg/dL Magnesium (1.8-2.4) mg/dL Ferritin > 1000 H (8-388) ng/mL Total Bilirubin (0.2-1.0) mg/dL Direct Bilirubin (0.0-0.2) mg/dL AST (15-37) U/L ALT (12-78) U/L Alkaline Phosphatase (46-116) IU/L Lactate Dehydrogenase (81-234) U/L Troponin I High Sens (<=76) ng/L C-Reactive Protein (<=0.9) mg/dL NT-Pro-B Natriuret Pep (0-125) pg/mL Total Protein (6.4-8.2) g/dL Albumin (3.4-5.0) g/dL 11/02/21 11/02/21 11/02/21 Range/Units 09:30 13:00 16:50 WBC (4.0-10.2) K/uL RBC (4.33-5.41) M/uL Hgb (13.1-16.8) g/dL Hct (39.0-49.0) % MCV (84.0-98.0) fL MCH (28.2-33.3) pg MCHC (31.7-36.0) g/dL RDW (11.2-14.1) % Plt Count (150-350) K/uL Neut % (Auto) (45.0-80.0) % Lymph % (Auto) (10.0-50.0) % Coke % (Auto) (2.0-14.0) % Eos % (Auto) (0.0-5.0) % Baso % (Auto) (0.0-2.0) % Neut # (Auto) (1.40-7.00) K/uL Lymph # (Auto) (0.50-3.50) K/uL Coke # (Auto) (0.00-1.00) K/uL Eos # (Auto) (0.00-0.50) K/uL Baso # (Auto) (0.00-0.20) K/uL PT (9.5-12.0) SEC INR APTT (24.5-32.8) SEC D-Dimer, Quantitative (0-400) ng/mL Sodium 139 (136-145) mmol/L Potassium 3.2 L (3.5-5.1) mmol/L Chloride 100 (98-107) mmol/L Carbon Dioxide 27.7 (21.0-32.0) mmol/L Anion Gap 14.5 (7-15) meq/L BUN 16 (7-18) mg/dL Creatinine 1.29 H (0.51-1.17) mg/dL Est Cr Clr Drug Dosing 59.07 Estimated GFR (MDRD) 57 mL/min Glucose 140 H (70-99) mg/dL Lactic Acid 1.2 (0.4-2.0) mmol/L Calcium 8.2 L (8.5-10.1) mg/dL Magnesium (1.8-2.4) mg/dL Ferritin (8-388) ng/mL Total Bilirubin (0.2-1.0) mg/dL Direct Bilirubin 0.2 (0.0-0.2) mg/dL AST (15-37) U/L ALT (12-78) U/L Alkaline Phosphatase (46-116) IU/L Lactate Dehydrogenase (81-234) U/L Troponin I High Sens (<=76) ng/L C-Reactive Protein (<=0.9) mg/dL NT-Pro-B Natriuret Pep (0-125) pg/mL Total Protein (6.4-8.2) g/dL Albumin (3.4-5.0) g/dL Med Orders - Current: Current Medications Acetaminophen (Acetaminophen 325 Mg Tab) 650 mg PO Q4H PRN PRN Reason: Pain (Mild 1-3)/fever Last Admin: 11/02/21 23:45 Dose: 650 mg Documented by: Albuterol (Albuterol 6.7 Gm Inhaler) 0 gm INH Q4HR PRN PRN Reason: Shortness Of Breath, Cough Last Admin: 11/02/21 23:50 Dose: 2 puff Documented by: Benzonatate (Benzonatate 100 Mg Cap) 100 mg PO TID PRN PRN Reason: Cough Last Admin: 11/02/21 23:50 Dose: 100 mg Documented by: Dexamethasone (Dexamethasone 2 Mg Tab) 6 mg PO DAILY [facility] Enoxaparin Sodium (Enoxaparin 40 Mg/0.4 Ml Syringe) 40 mg SUBCUT DAILY [facility] Last Admin: 11/02/21 14:33 Dose: 40 mg Documented by: Remdesivir 100 mg/ Sodium (Chloride) 100 mls @ 100 mls/hr IV Q24H [facility] Phenol/Menthol (Phenol 1.4% Oral Coin 177 Ml Bottle) 2 ml MUCMEM Q2H PRN PRN Reason: Sore Throat Sodium Chloride (Sodium Chloride 0.9% 10 Ml Syringe) 10 ml FLUSH ASDIRECTED PRN PRN Reason: Keep Vein Open Sodium Chloride (Sodium Chloride 0.9% 10 Ml Syringe) 30 ml FLUSH ASDIRECTED [facility] Last Admin: 11/02/21 12:26 Dose: 30 ml Documented by: Sodium Chloride (Sodium Chloride 0.9% 10 Ml Syringe) 30 ml FLUSH DAILY@1500 LOLY Stop: 11/06/21 15:01 Last Admin: 11/02/21 15:53 Dose: 30 ml Documented by: Discontinued Medications Dexamethasone (Dexamethasone 10 Mg/Ml Sdv) 6 mg IVPUSH ONETIME ONE Stop: 11/02/21 09:40 Last Admin: 11/02/21 09:52 Dose: 6 mg Documented by: Diphenhydramine HCl (Diphenhydramine 50 Mg/Ml Sdv) 50 mg IVPUSH ASDIRECTED PRN PRN Reason: hypersensitivity reaction Epinephrine HCl (Epinephrine 1 Mg/Ml Sdv) 0.3 mg IM ASDIRECTED PRN PRN Reason: hypersensitivity reaction Famotidine (Famotidine 20 Mg/2 Ml Sdv) 20 mg IVPUSH ASDIRECTED PRN PRN Reason: hypersensitivity reaction Lactated Ringer's (Ringers, Lactated) 1,000 mls @ 1,000 mls/hr IV .BOLUS ONE Stop: 11/02/21 10:38 Last Admin: 11/02/21 09:51 Dose: 1,000 mls/hr Documented by: Lactated Ringer's (Ringers, Lactated) 1,000 mls @ 250 mls/hr IV ASDIRECTED [facility] Last Admin: 11/02/21 11:44 Dose: 250 mls/hr Documented by: Bamlanivimab 700 mg/Etesevimab 1,400 mg/ Sodium Chloride 160 mls @ 310 mls/hr IV ONETIME ONE Stop: 11/02/21 11:34 Last Admin: 11/02/21 11:42 Dose: 310 mls/hr Documented by: Remdesivir 200 mg/ Sodium (Chloride) 250 mls @ 250 mls/hr IV ONETIME ONE Stop: 11/02/21 14:59 Last Admin: 11/02/21 14:34 Dose: 250 mls/hr Documented by: Lactated Ringer's (Ringers, Lactated) 1,000 mls @ 125 mls/hr IV ASDIRECTED [facility] Last Admin: 11/02/21 23:46 Dose: 125 mls/hr Documented by: Iopamidol (Iopamidol 755 Mg/Ml 100 Ml Bottle) 100 ml IVPUSH ONETIME ONE Stop: 11/02/21 11:29 Last Admin: 11/02/21 11:46 Dose: 100 ml Documented by: Methylprednisolone Sodium Succinate (Methylprednisolone Sodium Succinate 125 Mg/2 Ml Sdv) 125 mg IVPUSH ASDIRECTED PRN PRN Reason: hypersensitivity reaction Ondansetron HCl (Ondansetron 4 Mg/2 Ml Sdv) 4 mg IV ONETIME ONE Stop: 11/02/21 09:41 Last Admin: 11/02/21 09:51 Dose: 4 mg Documented by: Potassium Bicarbonate (Potassium Bicarbonate/Cit Ac 20 Meq Effervescent Tab) 20 meq PO Q2HR LOLY Stop: 11/02/21 16:01 Last Admin: 11/02/21 15:53 Dose: 20 meq Documented by: Potassium Bicarbonate (Potassium Bicarbonate/Cit Ac 20 Meq Effervescent Tab) 20 meq PO Q2H LOLY Stop: 11/02/21 21:31 Last Admin: 11/02/21 21:47 Dose: 20 meq Documented by: - Exam Quality Assessment: Reports: Supplemental Oxygen (Increasing demands rather quickly. )
[2021-11-03] MEDS ORDERED: Dexamethasone 2 MG Tab PO SCH (08:00)
[2021-11-03] MEDS ORDERED: REMDESIVIR 100 MG in Sodium Chloride 0.9% 100 ML IV SCH (14:00)
[2021-11-03] MEDS ORDERED: Sodium Chloride 0.9% 100 ML IV ONE (14:19)
== END 2021-11-03 02:55 | DRG 137 ==
LOC: LL.ED 09:25 → LL.MS 13:39
PROVIDERS: ADMIT Nurse Practitioner Family; ATTEND Hospitalist
PROC: 5A09357 Assistance with Respiratory Ventilation, Less than 24 Consecutive Hours, Continuous Positive Airway Pressure (ICD-10-PCS; principal; 2021-11-02)
PROC: 3E0333Z Introduction of Anti-inflammatory into Peripheral Vein, Percutaneous Approach (ICD-10-PCS; principal; 2021-11-02)
PROC: XW033F6 Introduction of Bamlanivimab Monoclonal Antibody into Peripheral Vein, Percutaneous Approach, New Technology Group 6 (ICD-10-PCS; principal; 2021-11-02)
PROC: XW033E5 Introduction of Remdesivir Anti-infective into Peripheral Vein, Percutaneous Approach, New Technology Group 5 (ICD-10-PCS; principal; 2021-11-02)
PROC: 8E0ZXY6 Isolation (ICD-10-PCS; principal; 2021-11-02)
DX: U07.1 COVID-19 (principal); J12.82 Pneumonia due to coronavirus disease 2019; J96.01 Acute respiratory failure with hypoxia; N17.9 Acute kidney failure, unspecified; E86.0 Dehydration; E87.6 Hypokalemia; D84.9 Immunodeficiency, unspecified; K50.90 Crohn's disease, unspecified, without complications; E66.9 Obesity, unspecified; Z88.2 Allergy status to sulfonamides; Z90.49 Acquired absence of other specified parts of digestive tract; Z68.38 Body mass index [BMI] 38.0-38.9, adult
CPT/HCPCS: 36415; 71045; 71275; 80048; 80053; 81001; 82248; 82728; 83605; 83615; 83735; 83880; 84145; 84484; 85025; 85379; 85610; 85730; 86140; 87040; 87086; 93005; 94660; 96374; 96375; 99285-25; A9270-GY; J1100; J1650; J2405; J7050; J7120; M0245; Q0245; Q9967

== ENCOUNTER 2021-11-29 00:56 | Inpatient (IN) | payer BC ==
[2021-11-29] MEDS ORDERED: Sodium Chloride 0.9% 10 ML Syringe FLUSH PRN (01:14)
[2021-11-29] MEDS ORDERED: Albuterol/Ipratropium 3.0-0.5 MG/3 ML Neb Soln NEB ONE (01:19)
--- NOTE | 2021-11-29 01:27 | EDM.PDOC ---
ED HPI GENERAL MEDICAL PROBLEM - General Chief Complaint: Respiratory Problem Stated Complaint: shortness of breath Time Seen by Provider: 11/29/21 01:04 Source of Information: Reports: Patient, Family History Limitations: Reports: No Limitations - History of Present Illness INITIAL COMMENTS - FREE TEXT/NARRATIVE: Pt. presents to ER with complaints of increased shortness of breath and hypoxia. Pt. has a history of recent extended hospitalization at [facility] following transfer from this facility with respiratory failure secondary to covid 19 pneumonia. Pt. initially diagnosed 10/23, presented to this ER on 11/02, at which time he was found to have ferritin greater than 1000 and highly elevated d dimer. CTA of chest negative for PE. Imaging showed significant g round glass opacification consistent with covid pneumonia. He initially was given MAB as he was not hypoxic at that time. Pt. developed increased work of breathing and was started on BiPAP, and admitted on Remdesivir and dexamethasone. He had GENARO. Pt. has a history of Crohn's disease and was in [place] at time of diagnosis. Pt. was transferred to [place] and discharged on 11/14. During his stay, he required HFNC as well as CPAP. He received Tocilizumab. He was started on vitamin C, zinc and vit D supplementation. He was discharged home on home O2 at 2l/min to keep sats above 90%. Pt. states that over the past several days, he has noticed increased trace edema in legs. He was seen in clinic today for troubles breathing, diagnosed with sinusitis and started on doxycycline. Clinic note is not complete, but it states that his O2 sat was dipping into the 60s when off O2 when he was showering. He states tonight he had increased work of breathing. He states that he was turning up his O2 concentration to 6L/min and was satting at approx. 50% after walking into ER tonight. To note, he states that he heard an electrical "pop" emanate from the concentrator and is wondering if the device is malfunctioning. Pt. denies any substernal chest, jaw, arm, neck or back pain. No nausea, vomiting, or diarrhea. Denies any fever or chills. He does complain of some lightheadedness when walking. States continues to have cough, occasionally productive of clear sputum, not any worse than previous. Nursing states that they placed patient on O2 per NC at 4L.min on arrival to ER. His O2 saturation at rest improved into the low to mid 90% range after a short period of time. Onset Date: 11/28/21 Location: Reports: Chest, Generalized Severity: Moderate Improves with: Reports: Rest Worsens with: Reports: Movement Associated Symptoms: Reports: Cough, cough w sputum (States cough is occasionally productive of greenish sputum). Denies: Confusion, Chest Pain, Fever/Chills - Related Data Allergies Allergy/AdvReac Type Severity Reaction Status Date / Time Sulfa (Sulfonamide Allergy Rash Verified 11/02/21 12:05 Antibiotics) Home Meds: Home Meds Meloxicam 15 mg PO DAILY 11/02/21 [History] Albuterol/Ipratropium [DuoNeb 3.0-0.5 MG/3 ML] 3 ml INH TID 11/29/21 [History] Ascorbate Calcium [Vitamin C] 2 tab PO BID 11/29/21 [History] Cholecalciferol (Vitamin D3) [Vitamin D3] 25 mcg PO DAILY 11/29/21 [History] Doxycycline Hyclate 100 mg PO [id number] 11/29/21 [History] Omeprazole 20 mg PO DAILY 11/29/21 [History] Zinc 50 mg PO DAILY 11/29/21 [History] Past Medical History HEENT History: Reports: None Cardiovascular History: Reports: None Respiratory History: Reports: None Gastrointestinal History: Reports: Other (See Below) Other Gastrointestinal History: Crohn's Genitourinary History: Reports: None Musculoskeletal History: Reports: None Neurological History: Reports: None Psychiatric History: Reports: None Endocrine/Metabolic History: Reports: Obesity/BMI 30+ Hematologic History: Reports: None Immunologic History: Reports: None Oncologic (Cancer) History: Reports: None Dermatologic History: Reports: None - Past Surgical History GI Surgical History: Reports: Appendectomy Other GI Surgeries/Procedures: small bowel resection for crohn's disease, ventral incisional hernia repair with mesh Social & Family History - Caffeine Use Caffeine Use: Reports: Coffee, Soda ED ROS GENERAL - Review of Systems Review Of Systems: See Below Constitutional: Reports: Malaise, Fatigue. Denies: Fever, Chills, Diaphoresis HEENT: Reports: No Symptoms Respiratory: Reports: Shortness of Breath, Cough. Denies: Hemoptysis Cardiovascular: Reports: Dyspnea on Exertion, Edema (states trace increase in peripheral edema), Lightheadedness (when ambulating) Endocrine: Reports: No Symptoms GI/Abdominal: Reports: No Symptoms. Denies: Abdominal Pain, Black Stool, Bloody Stool, Diarrhea, Hematemesis, Hematochezia, Melena, Nausea, Vomiting : Reports: No Symptoms Musculoskeletal: Reports: No Symptoms Skin: Reports: No Symptoms Neurological: Reports: Dizziness Psychiatric: Reports: No Symptoms Hematologic/Lymphatic: Reports: No Symptoms Immunologic: Reports: No Symptoms ED EXAM, GENERAL - Physical Exam Exam: See Below Exam Limited By: No Limitations General Appearance: Alert, WD/WN, No Apparent Distress Nose: Normal Inspection, No Blood, Other (congestion) Throat/Mouth: Other (oral mucosa somewhat dry.) Head: Atraumatic, Normocephalic Neck: Normal Inspection, Supple, Non-Tender, Full Range of Motion Respiratory/Chest: Decreased Breath Sounds Cardiovascular: Normal Peripheral Pulses, Regular Rate, Rhythm, No JVD, Other (minimal edema lower extremities) Peripheral Pulses: 4+: Radial (L) GI/Abdominal: Soft, Non-Tender, No Distention, No Mass (Male) Exam: Deferred Rectal (Males) Exam: Deferred Back Exam: Normal Inspection, Full Range of Motion Extremities: Normal Inspection, Normal Range of Motion, Non-Tender, Normal Capillary Refill, Pedal Edema, Other (Konrad sign negative). No: Leg Pain Neurological: Alert, Oriented, CN II-XII Intact, Normal Cognition, No Motor/Sensory Deficits Psychiatric: Normal Affect, Normal Mood Skin Exam: Warm, Dry, Intact, Pallor Lymphatic: No Adenopathy #1 Interpretation Rhythm: NSR [place]: Normal P-Wave: Present QRS: Normal ST-T: Normal QT: Normal Course - Vital Signs Last Recorded V/S: Last Vital Signs Temp 36.7 C 11/29/21 02:10 Pulse 109 H 11/29/21 02:40 Resp 20 11/29/21 02:40 BP 127/82 11/29/21 02:40 Pulse Ox 96 11/29/21 02:40 - Orders/Labs/Meds Orders: Active Orders 24 hr Category Date Time Status Patient Status [ADT] Routine ADT 11/29/21 03:37 Active Overnight Pulse Oximetry [RC] Click to Edit Care 11/29/21 01:17 Active Peripheral IV Care [RC] . DIRECTED Care 11/29/21 01:17 Active RT Aerosol Therapy [RC] ASDIRECTED Care 11/29/21 01:19 Active Ang Chest [CT] Stat Exams 11/29/21 02:25 Taken Chest 1V Frontal [CR] Stat Exams 11/29/21 01:15 Taken CULTURE BLOOD [BC] Stat Lab 11/29/21 01:20 Received CULTURE BLOOD [BC] Stat Lab 11/29/21 01:25 Received PROCALCITONIN [REF] Stat Lab 11/29/21 01:20 Received Sodium Chloride 0.9% [Saline Flush] Med 11/29/21 01:14 Active 10 ml FLUSH ASDIRECTED PRN Blood Culture x2 Reflex Set [OM.PC] Stat Oth 11/29/21 01:16 Ordered Peripheral IV Insertion Adult [OM.PC] Routine Oth 11/29/21 01:16 Ordered Pulse Oximetry Continuous Monitoring [OM.PC] Routine Oth 11/29/21 01:16 Ordered Medication Orders Albuterol/Ipratropium (Albuterol/Ipratropium 3.0-0.5 Mg/3 Ml Neb Soln) 3 ml NEB Q4HRRT LOLY Enoxaparin Sodium (Enoxaparin 40 Mg/0.4 Ml Syringe) 40 mg SUBCUT DAILY LOLY Sodium Chloride (Normal Saline) 500 mls @ 250 mls/hr IV ASDIRECTED LOLY Sodium Chloride (Sodium Chloride 0.9% 10 Ml Syringe) 10 ml FLUSH ASDIRECTED PRN PRN Reason: Keep Vein Open Labs: Laboratory Tests 11/29/21 11/29/21 11/29/21 Range/Units 01:20 01:20 01:20 WBC 8.9 (4.0-10.2) K/uL RBC 3.85 L (4.33-5.41) M/uL Hgb 12.3 L (13.1-16.8) g/dL Hct 36.1 L (39.0-49.0) % MCV 93.8 D (84.0-98.0) fL MCH 31.9 (28.2-33.3) pg MCHC 34.1 (31.7-36.0) g/dL RDW 14.4 H (11.2-14.1) % Plt Count 133 L D (150-350) K/uL Neut % (Auto) 72.2 (45.0-80.0) % Lymph % (Auto) 13.4 (10.0-50.0) % [place] % (Auto) 8.7 (2.0-14.0) % Eos % (Auto) 5.4 H (0.0-5.0) % Baso % (Auto) 0.3 (0.0-2.0) % Neut # (Auto) 6.45 (1.40-7.00) K/uL Lymph # (Auto) 1.20 (0.50-3.50) K/uL [place] # (Auto) 0.78 (0.00-1.00) K/uL Eos # (Auto) 0.48 (0.00-0.50) K/uL Baso # (Auto) 0.03 (0.00-0.20) K/uL PT 10.1 (9.6-11.3) SEC INR 1.0 D-Dimer, Quantitative 284 (0-400) ng/mL ABG pH (7.35-7.45) ABG pCO2 (35-45) mmHG ABG pO2 (80-105) mmHG ABG HCO3 (22-26) mmol/L ABG Total CO2 (23-27) mmol/L ABG O2 Saturation (95-98) % ABG Base Excess (-2-3) mmol/L O2 Delivery Device Sodium (136-145) mmol/L Potassium (3.5-5.1) mmol/L Chloride (98-107) mmol/L Carbon Dioxide (21.0-32.0) mmol/L Anion Gap (7-15) meq/L BUN (7-18) mg/dL Creatinine (0.51-1.17) mg/dL Est Cr Clr Drug Dosing Estimated GFR (MDRD) mL/min Glucose (70-99) mg/dL Lactic Acid (0.4-2.0) mmol/L Calcium (8.5-10.1) mg/dL Phosphorus (2.6-4.7) mg/dL Magnesium (1.8-2.4) mg/dL Ferritin (8-388) ng/mL Total Bilirubin (0.2-1.0) mg/dL AST (15-37) U/L ALT (12-78) U/L Alkaline Phosphatase (46-116) IU/L Lactate Dehydrogenase (81-234) U/L Troponin I High Sens (<=76) ng/L C-Reactive Protein (<=0.9) mg/dL NT-Pro-B Natriuret Pep (0-125) pg/mL Total Protein (6.4-8.2) g/dL Albumin (3.4-5.0) g/dL 11/29/21 11/29/21 11/29/21 Range/Units 01:20 01:20 01:20 WBC (4.0-10.2) K/uL RBC (4.33-5.41) M/uL Hgb (13.1-16.8) g/dL Hct (39.0-49.0) % MCV (84.0-98.0) fL MCH (28.2-33.3) pg MCHC (31.7-36.0) g/dL RDW (11.2-14.1) % Plt Count (150-350) K/uL Neut % (Auto) (45.0-80.0) % Lymph % (Auto) (10.0-50.0) % [place] % (Auto) (2.0-14.0) % Eos % (Auto) (0.0-5.0) % Baso % (Auto) (0.0-2.0) % Neut # (Auto) (1.40-7.00) K/uL Lymph # (Auto) (0.50-3.50) K/uL [place] # (Auto) (0.00-1.00) K/uL Eos # (Auto) (0.00-0.50) K/uL Baso # (Auto) (0.00-0.20) K/uL PT (9.6-11.3) SEC INR D-Dimer, Quantitative (0-400) ng/mL ABG pH (7.35-7.45) ABG pCO2 (35-45) mmHG ABG pO2 (80-105) mmHG ABG HCO3 (22-26) mmol/L ABG Total CO2 (23-27) mmol/L ABG O2 Saturation (95-98) % ABG Base Excess (-2-3) mmol/L O2 Delivery Device Sodium 146 H (136-145) mmol/L Potassium 3.6 (3.5-5.1) mmol/L Chloride 110 H (98-107) mmol/L Carbon Dioxide 25.1 (21.0-32.0) mmol/L Anion Gap 14.5 (7-15) meq/L BUN 12 (7-18) mg/dL Creatinine 1.15 (0.51-1.17) mg/dL Est Cr Clr Drug Dosing TNP Estimated GFR (MDRD) > 60 mL/min Glucose 122 H (70-99) mg/dL Lactic Acid 2.3 H (0.4-2.0) mmol/L Calcium 8.3 L (8.5-10.1) mg/dL Phosphorus 3.4 (2.6-4.7) mg/dL Magnesium 1.7 L (1.8-2.4) mg/dL Ferritin 927 H (8-388) ng/mL Total Bilirubin 0.7 (0.2-1.0) mg/dL AST 12 L (15-37) U/L ALT 27 (12-78) U/L Alkaline Phosphatase 89 (46-116) IU/L Lactate Dehydrogenase 240 H (81-234) U/L Troponin I High Sens 10 (<=76) ng/L C-Reactive Protein < 0.2 (<=0.9) mg/dL NT-Pro-B Natriuret Pep 60 (0-125) pg/mL Total Protein 6.8 (6.4-8.2) g/dL Albumin 3.3 L (3.4-5.0) g/dL 11/29/21 Range/Units 01:53 WBC (4.0-10.2) K/uL RBC (4.33-5.41) M/uL Hgb (13.1-16.8) g/dL Hct (39.0-49.0) % MCV (84.0-98.0) fL MCH (28.2-33.3) pg MCHC (31.7-36.0) g/dL RDW (11.2-14.1) % Plt Count (150-350) K/uL Neut % (Auto) (45.0-80.0) % Lymph % (Auto) (10.0-50.0) % [place] % (Auto) (2.0-14.0) % Eos % (Auto) (0.0-5.0) % Baso % (Auto) (0.0-2.0) % Neut # (Auto) (1.40-7.00) K/uL Lymph # (Auto) (0.50-3.50) K/uL [place] # (Auto) (0.00-1.00) K/uL Eos # (Auto) (0.00-0.50) K/uL Baso # (Auto) (0.00-0.20) K/uL PT (9.6-11.3) SEC INR D-Dimer, Quantitative (0-400) ng/mL ABG pH 7.43 (7.35-7.45) ABG pCO2 33 L (35-45) mmHG ABG pO2 70 L* (80-105) mmHG ABG HCO3 22.4 (22-26) mmol/L ABG Total CO2 23 (23-27) mmol/L ABG O2 Saturation 95 (95-98) % ABG Base Excess -1 (-2-3) mmol/L O2 Delivery Device Nasal cannula Sodium (136-145) mmol/L Potassium (3.5-5.1) mmol/L Chloride (98-107) mmol/L Carbon Dioxide (21.0-32.0) mmol/L Anion Gap (7-15) meq/L BUN (7-18) mg/dL Creatinine (0.51-1.17) mg/dL Est Cr Clr Drug Dosing Estimated GFR (MDRD) mL/min Glucose (70-99) mg/dL Lactic Acid (0.4-2.0) mmol/L Calcium (8.5-10.1) mg/dL Phosphorus (2.6-4.7) mg/dL Magnesium (1.8-2.4) mg/dL Ferritin (8-388) ng/mL Total Bilirubin (0.2-1.0) mg/dL AST (15-37) U/L ALT (12-78) U/L Alkaline Phosphatase (46-116) IU/L Lactate Dehydrogenase (81-234) U/L Troponin I High Sens (<=76) ng/L C-Reactive Protein (<=0.9) mg/dL NT-Pro-B Natriuret Pep (0-125) pg/mL Total Protein (6.4-8.2) g/dL Albumin (3.4-5.0) g/dL Meds: Medications Generic Name Dose Route Start Last Admin Trade Name Freq PRN Reason Stop Dose Admin Albuterol/Ipratropium 3 ml 11/29/21 08:00 Albuterol/Ipratropium 3.0-0.5 Mg/3 Ml Neb Soln NEB Q4HRRT LOLY Enoxaparin Sodium 40 mg 11/29/21 04:45 Enoxaparin 40 Mg/0.4 Ml Syringe SUBCUT DAILY LOLY Sodium Chloride 500 mls @ 250 mls/hr 11/29/21 04:30 Normal Saline IV ASDIRECTED LOLY Sodium Chloride 10 ml 11/29/21 01:14 Sodium Chloride 0.9% 10 Ml Syringe FLUSH ASDIRECTED PRN Keep Vein Open Discontinued Medications Generic Name Dose Route Start Last Admin Trade Name Freq PRN Reason Stop Dose Admin Albuterol/Ipratropium 3 ml 11/29/21 01:19 11/29/21 01:29 Albuterol/Ipratropium 3.0-0.5 Mg/3 Ml Neb Soln NEB 11/29/21 01:20 3 ml ONETIME ONE Administration Iopamidol Confirm 11/29/21 02:41 11/29/21 03:13 Iopamidol 755 Mg/Ml 100 Ml Bottle Administered 11/29/21 02:42 100 ml Dose Administration 100 ml .ROUTE .[facility] - Radiology Interpretation Free Text/Narrative:: Chest x-ray showed slightly diminished lung volumes when compared to previous study (1 view portable compared to 2 view chest x-ray 11/23). Diffuse bilateral mixed interstitial and alveolar opacities. No pneumo, pleural effusion. Cardiac silhouette upper limits of normal. No obvious failure pattern. CTA chest The pulmonary arteries are well-opacified without evidence of pulmonary thromboembolism. The heart is unremarkable in appearance. No acute findings identified in the aorta. There has been evolution of the previously demonstrated multifocal predominantly peripheral regions of patchy and confluent consolidation. The degree of consolidation has decreased significantly now with areas of curvilinear parenchymal opacities, groundglass opacities involving a peribronchial vascular distribution. No pleural effusion or pneumothorax. Tracheobronchial tree is unremarkable. There are scattered mediastinal and hilar lymph nodes which are not enlarged by size criteria. Limited evaluation of the low neck and axilla is unremarkable. No acute findings identified in the upper abdomen. No acute osseous abnormalities identified. Impression: 1. No evidence of pulmonary embolism. 2. Evolution with decreased prominence of previously demonstrated multifocal regions of consolidation related to Covid 19 pneumonia now with evolving curvilinear parenchymal bands, scattered groundglass opacities. - Re-Assessments/Exams Free Text/Narrative Re-Assessment/Exam: Pt. maintaining O2 sats in the low 90% range on 4L/min on arrival to ER. Pt. was given a duoneb breathing treatment, now maintaining O2 sats in the mid to high 90s. Departure - Departure Time of Disposition: 04:36 Disposition: Admitted As Inpatient 65 Clinical Impression: Pneumonia due to COVID-19 virus, Hypoxia, Lactic acidosis - Discharge Information Sepsis Event Note (ED) - Evaluation Sepsis Screening Result: Possible Sepsis Risk - Focused Exam Vital Signs: Vital Signs Temp Pulse Resp BP Pulse Ox Pulse Ox 11/29/21 02:40 109 H 20 127/82 96 11/29/21 02:25 106 H 20 120/81 96 11/29/21 02:10 36.7 C 109 H 21 H 111/78 95 11/29/21 01:55 109 H 21 H 111/68 95 11/29/21 01:40 109 H 22 H 113/77 93 L 11/29/21 01:25 105 H 21 H 115/76 95 11/29/21 01:10 105 H 24 H 130/72 93 L 11/29/21 01:05 102 H 23 H 92 L 11/29/21 01:00 37.1 C 105 H 24 H 123/76 87 L 91 L 11/29/21 00:58 30 H 76 L 11/29/21 00:56 37.0 C 108 H 30 H 123/76 50 L - Problem List Review Problem List Initiated/Reviewed/Updated: Yes - My Orders Last 24 Hours: My Active Orders 11/29/21 01:14 Sodium Chloride 0.9% [Saline Flush] 10 ml FLUSH ASDIRECTED PRN 11/29/21 01:15 Chest 1V Frontal [CR] Stat 11/29/21 01:16 Blood Culture x2 Reflex Set [OM.PC] Stat Peripheral IV Insertion Adult [OM.PC] Routine Pulse Oximetry Continuous Monitoring [OM.PC] Routine 11/29/21 01:17 Overnight Pulse Oximetry [RC] Click to Edit Peripheral IV Care [RC] . DIRECTED 11/29/21 01:19 RT Aerosol Therapy [RC] ASDIRECTED 11/29/21 01:20 CULTURE BLOOD [BC] Stat PROCALCITONIN [REF] Stat 11/29/21 01:25 CULTURE BLOOD [BC] Stat 11/29/21 02:25 Ang Chest [CT] Stat 11/29/21 03:37 Patient Status [ADT] Routine - Assessment/Plan Admission H&P: Please use this note as an admission H&P Last 24 Hours: My Active Orders 11/29/21 01:14 Sodium Chloride 0.9% [Saline Flush] 10 ml FLUSH ASDIRECTED PRN 11/29/21 01:15 Chest 1V Frontal [CR] Stat 11/29/21 01:16 Blood Culture x2 Reflex Set [OM.PC] Stat Peripheral IV Insertion Adult [OM.PC] Routine Pulse Oximetry Continuous Monitoring [OM.PC] Routine 11/29/21 01:17 Overnight Pulse Oximetry [RC] Click to Edit Peripheral IV Care [RC] . DIRECTED 11/29/21 01:19 RT Aerosol Therapy [RC] ASDIRECTED 11/29/21 01:20 CULTURE BLOOD [BC] Stat PROCALCITONIN [REF] Stat 11/29/21 01:25 CULTURE BLOOD [BC] Stat 11/29/21 02:25 Ang Chest [CT] Stat 11/29/21 03:37 Patient Status [ADT] Routine Plan: Pt. will be admitted acutely. He meets sepsis criteria based on vitals and elevated lactate level. Lactate will be trended. Will also check influenza in AM. Pt. is a code 1. Regular diet. Pt. currently on O2 per simple mask at 3L/min via simple mask. He is currently nasally congested, being treated for sinusitis and having troubles breathing through nose, and he tolerates the mask much better. Will continue the doxycycline. Start duoneb breathing treatments scheduled every 4 hours. Incentive spirometry. Pt. encouraged to increase consumption of fluids. Clinically and hemodynamically he appears mildly dehydrated. He will be given a 500ml fluid bolus. Strict I and O. Vitals Q 4 hours. Lovenox for DVT prophylaxis. Pt. indicated there may have been some malfunction in his O2 concentrator (see HPI). Will contact DME vendor to biomed or replace the device. To note, his O2 sat did improve rapidly after being placed on hospital O2. Anticipate discharge when pt. lactic acid has normalized and he is maintaining O2 sats. greater than 90% on 2L/min. W
[2021-11-29 01:55] LABS: CHLORIDE,CL 110 mmol/L (98-107); SODIUM,NA 146 mmol/L (136-145)
[2021-11-29 01:56] LABS: O2 DELIVERY DEVICE NASAL CANNULA; PCO2 ARTERIAL 33 mmHG (35-45)
[2021-11-29 01:57] LABS: BASE EXCESS ARTERIAL -1 mmol/L (-2-3); BICARBONATE,ARTERIAL 22.4 mmol/L (22-26); O2 SATURATION ARTERIAL 95 % (95-98); PO2 ARTERIAL 70 mmHG (80-105)
[2021-11-29 02:04] LABS: ANION GAP 14.5 meq/L (7-15)
[2021-11-29] MEDS ORDERED: Iopamidol 755 Mg/ML 100 ML Bottle ONE (02:41)
[2021-11-29] MEDS ORDERED: Sodium Chloride 0.9% 500 ML IV SCH (04:30)
[2021-11-29] MEDS: Enoxaparin 40 MG/0.4 ML Syringe SUBCUT SCH ×2 (04:49→07:44)
[2021-11-29] MEDS: Albuterol/Ipratropium 3.0-0.5 MG/3 ML Neb Soln NEB SCH ×3 (07:44→17:00)
[2021-11-29 09:12] LABS: O2 DELIVERY DEVICE SIMPLE MASK; PCO2 ARTERIAL 33 mmHG (35-45)
[2021-11-29 09:14] LABS: BASE EXCESS ARTERIAL -2 mmol/L (-2-3); O2 SATURATION ARTERIAL 90 % (95-98); PO2 ARTERIAL 57 mmHG (80-105)
[2021-11-29 15:34] VITALS: BP 136/91; PULSE 107
--- NOTE | 2021-11-29 16:43 | PCM.DCSUM1 ---
Discharge Summary - Hospital Course HPI Initial Comments: Pt. presented to the ED on 11/28/21 with complaints of increased shortness of breath and hypoxia. He had a recent hospital stay for COVID-19, after being diagnosed 10/23/2021, hospitalized 11/02/21 and was just discharged on 11/14/2021 with 2 L of oxygen at rest and up to 6 L with activity. While in the hospital he received tocilizumab, remdesivir and dexamethasone. At discharge he was started on vitamin D, zinc, vitamin C. He returned to the emergency department on 11/28/2021 with complaints that the oxygen was no longer sufficient. On presentation oxygen saturation was in the low 60s on 6 L of oxygen. There was question as to whether or not his oxygen tank was working correctly. It appeared that he did not have a concentrator but only had portable oxygen. Diagnosis: Stroke: No Modified Vermillion Scale: Slight Disable;Unable to Carry Out Prev Act.Able to Look After Affairs Modified Vermillion Scale Score: 2 - Discharge Data Discharge Date: 11/29/21 Discharge Disposition: Home, Self-Care 01 Condition: Good - Referral to Home Health Date of Face to Face Encounter: 11/29/21 Primary Care Physician: Andie Bell NP - Patient Summary/Data Hospital Course: Pt. presented to the ED on 11/28/21 with complaints of increased shortness of breath and hypoxia. He had a recent hospital stay for COVID-19, after being diagnosed 10/23/2021, hospitalized 11/02/21 and was just discharged on 11/14/2021 with 2 L of oxygen at rest and up to 6 L with activity. While in the hospital he received tocilizumab, remdesivir and dexamethasone. At discharge he was started on vitamin D, zinc, vitamin C. He returned to the emergency department on 11/28/2021 with complaints that the oxygen was no longer sufficient. On presentation oxygen saturation was in the low 60s on 6 L of oxygen. There was question as to whether or not his oxygen tank was working correctly. It appeared that he did not have a concentrator but only had portable oxygen. CTA was completed which was negative for PE. Initially bilateral lower lobe atelectasis was thought to be a possible pneumonia so he was briefly placed on IV antibiotics. Incentive spirometer was provided for him. Oxygen was weaned as tolerated. The oxygen company was contacted and a concentrator was ordered and it was noted that his portable oxygen was only putting out 1.6 L for every 2 L that he had it set for. By the afternoon of 11/29/2021 new oxygen was in place patient was on 2.5 L of oxygen and was thought to be medically stable for discharge home to continue weaning oxygen as previously ordered by [facility]. All questions and concerns were addressed at the bedside prior to discharge. - Patient Instructions Diet: Regular Diet as Tolerated Activity: Rest and Relax Today Driving: May Drive Today Showering/Bathing: April Shower - Discharge Plan *PRESCRIPTION DRUG MONITORING PROGRAM REVIEWED*: Not Applicable *COPY OF PRESCRIPTION DRUG MONITORING REPORT IN PATIENT ELDON: Not Applicable Home Medications: Home Meds Meloxicam 15 mg PO DAILY 11/02/21 [History] Albuterol/Ipratropium [DuoNeb 3.0-0.5 MG/3 ML] 3 ml INH TID 11/29/21 [History] Ascorbate Calcium [Vitamin C] 2 tab PO BID 11/29/21 [History] Cholecalciferol (Vitamin D3) [Vitamin D3] 25 mcg PO DAILY 11/29/21 [History] Doxycycline Hyclate 100 mg PO [id number] 11/29/21 [History] Omeprazole 20 mg PO DAILY 11/29/21 [History] Zinc 50 mg PO DAILY 11/29/21 [History] Oxygen Therapy Mode: Room Air Oxygen Flow Rate (L/min): 3 (3L at rest and 6L with activity) Maintain SpO2% greater than: 92 Forms: ED Department Discharge Referrals: Andie Bell NP [Primary Care Provider] - - Discharge Summary/Plan Comment DC Time >30 min.: Yes Total # of Minutes for Discharge Time: 60 - General Info Date of Service: 11/29/21 Functional Status: Reports: Pain Controlled, Tolerating Diet, Ambulating, Urinating, New Symptoms, Incentive Spirometry - Review of Systems General: Reports: No Symptoms HEENT: Reports: No Symptoms Pulmonary: Reports: Shortness of Breath. Denies: Sputum, Hemoptysis, Wheezing Cardiovascular: Reports: No Symptoms Gastrointestinal: Reports: No Symptoms Genitourinary: Reports: No Symptoms Musculoskeletal: Reports: No Symptoms Skin: Reports: No Symptoms Neurological: Reports: No Symptoms Psychiatric: Reports: No Symptoms - Patient Data Vitals - Most Recent: Last Vital Signs Temp 98.1 F 11/29/21 15:33 Pulse 107 H 11/29/21 15:33 Resp 20 11/29/21 15:33 BP 136/91 H 11/29/21 15:33 Pulse Ox 87 L 11/29/21 15:33 Weight - Most Recent: 243 lb 9.773 oz I&O - Last 24 hours: Intake & Output 11/29/21 11/29/21 11/29/21 06:59 14:59 22:59 Intake Total 490 760 Balance 490 760 Lab Results - Last 24 hrs: Laboratory Results - last 24 hr 11/29/21 11/29/21 11/29/21 Range/Units 01:20 01:20 01:20 WBC 8.9 (4.0-10.2) K/uL RBC 3.85 L (4.33-5.41) M/uL Hgb 12.3 L (13.1-16.8) g/dL Hct 36.1 L (39.0-49.0) % MCV 93.8 D (84.0-98.0) fL MCH 31.9 (28.2-33.3) pg MCHC 34.1 (31.7-36.0) g/dL RDW 14.4 H (11.2-14.1) % Plt Count 133 L D (150-350) K/uL Neut % (Auto) 72.2 (45.0-80.0) % Lymph % (Auto) 13.4 (10.0-50.0) % [place] % (Auto) 8.7 (2.0-14.0) % Eos % (Auto) 5.4 H (0.0-5.0) % Baso % (Auto) 0.3 (0.0-2.0) % Neut # (Auto) 6.45 (1.40-7.00) K/uL Lymph # (Auto) 1.20 (0.50-3.50) K/uL [place] # (Auto) 0.78 (0.00-1.00) K/uL Eos # (Auto) 0.48 (0.00-0.50) K/uL Baso # (Auto) 0.03 (0.00-0.20) K/uL PT 10.1 (9.6-11.3) SEC INR 1.0 D-Dimer, Quantitative 284 (0-400) ng/mL ABG pH (7.35-7.45) ABG pCO2 (35-45) mmHG ABG pO2 (80-105) mmHG ABG HCO3 (22-26) mmol/L ABG Total CO2 (23-27) mmol/L ABG O2 Saturation (95-98) % ABG Base Excess (-2-3) mmol/L O2 Delivery Device Sodium (136-145) mmol/L Potassium (3.5-5.1) mmol/L Chloride (98-107) mmol/L Carbon Dioxide (21.0-32.0) mmol/L Anion Gap (7-15) meq/L BUN (7-18) mg/dL Creatinine (0.51-1.17) mg/dL Est Cr Clr Drug Dosing Estimated GFR (MDRD) mL/min Glucose (70-99) mg/dL Lactic Acid (0.4-2.0) mmol/L Calcium (8.5-10.1) mg/dL Phosphorus (2.6-4.7) mg/dL Magnesium (1.8-2.4) mg/dL Ferritin (8-388) ng/mL Total Bilirubin (0.2-1.0) mg/dL AST (15-37) U/L ALT (12-78) U/L Alkaline Phosphatase (46-116) IU/L Lactate Dehydrogenase (81-234) U/L Troponin I High Sens (<=76) ng/L C-Reactive Protein (<=0.9) mg/dL NT-Pro-B Natriuret Pep (0-125) pg/mL Total Protein (6.4-8.2) g/dL Albumin (3.4-5.0) g/dL 11/29/21 11/29/21 11/29/21 Range/Units 01:20 01:20 01:20 WBC (4.0-10.2) K/uL RBC (4.33-5.41) M/uL Hgb (13.1-16.8) g/dL Hct (39.0-49.0) % MCV (84.0-98.0) fL MCH (28.2-33.3) pg MCHC (31.7-36.0) g/dL RDW (11.2-14.1) % Plt Count (150-350) K/uL Neut % (Auto) (45.0-80.0) % Lymph % (Auto) (10.0-50.0) % [place] % (Auto) (2.0-14.0) % Eos % (Auto) (0.0-5.0) % Baso % (Auto) (0.0-2.0) % Neut # (Auto) (1.40-7.00) K/uL Lymph # (Auto) (0.50-3.50) K/uL [place] # (Auto) (0.00-1.00) K/uL Eos # (Auto) (0.00-0.50) K/uL Baso # (Auto) (0.00-0.20) K/uL PT (9.6-11.3) SEC INR D-Dimer, Quantitative (0-400) ng/mL ABG pH (7.35-7.45) ABG pCO2 (35-45) mmHG ABG pO2 (80-105) mmHG ABG HCO3 (22-26) mmol/L ABG Total CO2 (23-27) mmol/L ABG O2 Saturation (95-98) % ABG Base Excess (-2-3) mmol/L O2 Delivery Device Sodium 146 H (136-145) mmol/L Potassium 3.6 (3.5-5.1) mmol/L Chloride 110 H (98-107) mmol/L Carbon Dioxide 25.1 (21.0-32.0) mmol/L Anion Gap 14.5 (7-15) meq/L BUN 12 (7-18) mg/dL Creatinine 1.15 (0.51-1.17) mg/dL Est Cr Clr Drug Dosing TNP Estimated GFR (MDRD) > 60 mL/min Glucose 122 H (70-99) mg/dL Lactic Acid 2.3 H (0.4-2.0) mmol/L Calcium 8.3 L (8.5-10.1) mg/dL Phosphorus 3.4 (2.6-4.7) mg/dL Magnesium 1.7 L (1.8-2.4) mg/dL Ferritin 927 H (8-388) ng/mL Total Bilirubin 0.7 (0.2-1.0) mg/dL AST 12 L (15-37) U/L ALT 27 (12-78) U/L Alkaline Phosphatase 89 (46-116) IU/L Lactate Dehydrogenase 240 H (81-234) U/L Troponin I High Sens 10 (<=76) ng/L C-Reactive Protein < 0.2 (<=0.9) mg/dL NT-Pro-B Natriuret Pep 60 (0-125) pg/mL Total Protein 6.8 (6.4-8.2) g/dL Albumin 3.3 L (3.4-5.0) g/dL 11/29/21 11/29/21 11/29/21 Range/Units 01:53 07:42 08:58 WBC (4.0-10.2) K/uL RBC (4.33-5.41) M/uL Hgb (13.1-16.8) g/dL Hct (39.0-49.0) % MCV (84.0-98.0) fL MCH (28.2-33.3) pg MCHC (31.7-36.0) g/dL RDW (11.2-14.1) % Plt Count (150-350) K/uL Neut % (Auto) (45.0-80.0) % Lymph % (Auto) (10.0-50.0) % [place] % (Auto) (2.0-14.0) % Eos % (Auto) (0.0-5.0) % Baso % (Auto) (0.0-2.0) % Neut # (Auto) (1.40-7.00) K/uL Lymph # (Auto) (0.50-3.50) K/uL [place] # (Auto) (0.00-1.00) K/uL Eos # (Auto) (0.00-0.50) K/uL Baso # (Auto) (0.00-0.20) K/uL PT (9.6-11.3) SEC INR D-Dimer, Quantitative (0-400) ng/mL ABG pH 7.43 7.44 (7.35-7.45) ABG pCO2 33 L 33 L (35-45) mmHG ABG pO2 70 L* 57 L* (80-105) mmHG ABG HCO3 22.4 22.0 (22-26) mmol/L ABG Total CO2 23 23 (23-27) mmol/L ABG O2 Saturation 95 90 L (95-98) % ABG Base Excess -1 -2 (-2-3) mmol/L O2 Delivery Device Nasal cannula Simple mask Sodium (136-145) mmol/L Potassium (3.5-5.1) mmol/L Chloride (98-107) mmol/L Carbon Dioxide (21.0-32.0) mmol/L Anion Gap (7-15) meq/L BUN (7-18) mg/dL Creatinine (0.51-1.17) mg/dL Est Cr Clr Drug Dosing Estimated GFR (MDRD) mL/min Glucose (70-99) mg/dL Lactic Acid 2.3 H (0.4-2.0) mmol/L Calcium (8.5-10.1) mg/dL Phosphorus (2.6-4.7) mg/dL Magnesium (1.8-2.4) mg/dL Ferritin (8-388) ng/mL Total Bilirubin (0.2-1.0) mg/dL AST (15-37) U/L ALT (12-78) U/L Alkaline Phosphatase (46-116) IU/L Lactate Dehydrogenase (81-234) U/L Troponin I High Sens (<=76) ng/L C-Reactive Protein (<=0.9) mg/dL NT-Pro-B Natriuret Pep (0-125) pg/mL Total Protein (6.4-8.2) g/dL Albumin (3.4-5.0) g/dL JUSTIN Results - Last 24 hrs: Microbiology 11/29/21 06:22 Influenza Type A Antigen Screen - Final Nasal, Unspecified NEGATIVE INFLUENZA A VIRUS AG REFERENCE RANGE: NEGATIVE Influenza Type B Antigen Screen - Final NEGATIVE INFLUENZA B VIRUS AG REFERENCE RANGE: NEGATIVE Med Orders - Current: Current Medications Albuterol/Ipratropium (Albuterol/Ipratropium 3.0-0.5 Mg/3 Ml Neb Soln) 3 ml NEB Q4HRRT LOLY Last Admin: 11/29/21 12:20 Dose: 3 ml Documented by: Enoxaparin Sodium (Enoxaparin 40 Mg/0.4 Ml Syringe) 40 mg SUBCUT DAILY [facility] Last Admin: 11/29/21 07:44 Dose: 40 mg Documented by: Sodium Chloride (Sodium Chloride 0.9% 10 Ml Syringe) 10 ml FLUSH ASDIRECTED PRN PRN Reason: Keep Vein Open Discontinued Medications Albuterol/Ipratropium (Albuterol/Ipratropium 3.0-0.5 Mg/3 Ml Neb Soln) 3 ml NEB ONETIME ONE Stop: 11/29/21 01:20 Last Admin: 11/29/21 01:29 Dose: 3 ml Documented by: Sodium Chloride (Normal Saline) 500 mls @ 250 mls/hr IV ASDIRECTED LOLY Last Admin: 11/29/21 04:49 Dose: 250 mls/hr Documented by: Iopamidol (Iopamidol 755 Mg/Ml 100 Ml Bottle) Confirm Administered Dose 100 ml .ROUTE .STK-MED ONE Stop: 11/29/21 02:42 Last Admin: 11/29/21 03:13 Dose: 100 ml Documented by: - Exam Quality Assessment: Reports: Supplemental Oxygen. Denies: Central Line/PICC, DVT Prophylaxis, Skin Breakdown General: Reports: Alert, Oriented, No Acute Distress HEENT: Reports: EOMI, Mucous Membr. Moist/[place] Neck: Reports: Supple, No JVD Lungs: Reports: Clear to Auscultation, Normal Respiratory Effort, Decreased Breath Sounds (bilateral bases). Denies: Crackles, Rales, Rhonchi, Rub, Wheezing Cardiovascular: Reports: Regular Rate, Regular Rhythm, No Murmurs GI/Abdominal Exam: Soft (Male) Exam: Deferred Rectal (Males) Exam: Deferred Back Exam: Reports: Full Range of Motion Extremities: Normal Range of Motion, No Pedal Edema Skin: Reports: Warm, Dry Neurological: Reports: No New Focal Deficit Psy/Mental Status: Reports: Normal Affect, Normal Mood *Q Meaningful Use (DIS) - VTE *Q VTE Mechanical Contraindications *Q: Tx/Proc Refused byPt VTE Pharmacological Contraindications *Q: Tx/Proc Refused by Pt VTE Anticoagulation Contraindications: Tx/proc Refused by PT - Stroke *Q Aspirin Contraindications Stroke *Q: Patient Refusal Anticoagulation Contraindications Stroke *Q: TX/PROC Refused by PT Antithrombotic Contraindications Stroke *Q: TX/PROC Refused by PT Statin Contraindications Stroke *Q: TX/PROC Refused by PT Rehabilitation Assessment Contraindication *Q: Tx/proc refused by pt - AMI *Q Aspirin Contraindications AMI *Q: TX/PROC Refused by PT Statin Contraindications AMI *Q: TX/Proc Refused by PT
== END 2021-11-29 17:35 | disposition home or self-care (01) | DRG 137 ==
LOC: LL.ED 00:56 → LL.MS 03:40
PROVIDERS: ADMIT Physician Assistant; ATTEND Physician Assistant
DX: J12.82 Pneumonia due to coronavirus disease 2019 (principal); U09.9 Post COVID-19 condition, unspecified
CPT/HCPCS: 36415; 36600; 71045; 71275; 80053; 82728; 82803; 83605; 83615; 83735; 83880; 84100; 84145; 84484; 85025; 85379; 85610; 86140; 87040; 87804; 93005; 94640; 94761; 99285-25; J1650; J7040; J7620-GY; Q9967